=== PATIENT | female | born 1950 ===

== ENCOUNTER 2017-11-07 06:12 | Day surgery (SDC) | payer OTHER | END 2017-11-07 10:30 | disposition home or self-care (01) | LOC: AMB-ENDOS 06:12 → CIR.AMB 12:30 → AMB-ENDOS 12:30 | DX: D12.4 Benign neoplasm of descending colon (principal); K64.8 Other hemorrhoids ==

== ENCOUNTER 2017-12-25 06:00 | Day surgery (SDC) | payer OTHER ==
[~2017-12-25] VITALS: Ht 154.9 cm; Wt 61.7 kg
[~2017-12-25 06:00] MED LIST: BACLOFEN10 MG PO; CARAFATE1 GM PO; CRESTOR10 MG PO; KEFLEX500 MG PO; MECLIZINE HCL12.5 MG PO; PRILOSEC OTC20 MG PO; RESTORA RX CAP1 EACH; TRAMADOL HCL7.5 GM; ZANAX
[2017-12-25] MEDS ORDERED: ALPRAZOLAM2 M1 PO (12:18)
[2017-12-26] MEDS ORDERED: MACROBID 100 M100 MG PO (12:47)
[2017-12-26] MEDS ORDERED: RECTICARE30 GM TOP (12:47)
[2017-12-26] MEDS ORDERED: ULTRACET PO (12:48)
== END 2017-12-26 12:45 | disposition home or self-care (01) ==
LOC: CIR.AMB 06:00 → O/R 06:25 → SURG 06:25 → EDSTATUS 08:30 → SURG 08:30 → O/R 10:47 → CIR.AMB 12-26 12:45 → SURG 12-26 13:04
DX: N81.6 Rectocele (principal); R15.9 Full incontinence of feces